=== PATIENT | female | born 1960 | race Caucasian/White ===

== ENCOUNTER 2019-02-23 21:54 | Emergency (ER) | payer BC ==
[2019-02-23 22:14] VITALS: BP 120/82; PULSE 76; TEMP 98.4; BMI 20.2
[2019-02-23] MEDS ORDERED: DIPHTH,PERTUSS(ACELL),TET 0.5 ML DISP.SYRIN IM ONE ×2 (23:08→23:15)
--- NOTE | 2019-02-23 23:14 | PDOC ---
History of Present Illness - General Chief Complaint: Injury Stated Complaint: FINGER INJURY Time Seen by Provider: 02/23/19 22:44 History Source: Patient Exam Limitations: No Limitations - History of Present Illness Initial Comments: 02/23/19 23:11 HISTORY OF PRESENT ILLNESS: 59-year-old woman presents emergency department for evaluation of laceration to left index finger while cleaning a immersion hub lead. Patient reports the blade was spinning when she reached in to clean it striking the tip of her index finger as it was stopping. Patient evidently applied pressure dressing to her finger presented to the emergency department for evaluation. Patient is unsure of her last tetanus shot. Patient is right- hand dominant and works as a copying machine mechanic. No recent travel or sick contacts. PAST MEDICAL HISTORY: Depression, HLD SURGICAL HISTORY: Denies ALLERGIES: No known drug allergies REVIEW OF SYSTEMS General/Constitutional: Denies fever or chills. Denies weakness, weight change. HEENT: Denies change in vision. Denies ear pain or discharge. Denies sore throat. Cardiovascular: Denies chest pain or shortness of breath. Respiratory: Denies cough, wheezing, or hemoptysis. Gastrointestinal: Denies nausea, vomiting, diarrhea or constipation. Denies rectal bleeding. Genitourinary: Denies dysuria, frequency, or change in urination. Musculoskeletal: Denies joint or muscle swelling or pain. Denies neck or back pain. Skin and breasts: see HPI Neurologic: Denies headache, vertigo, loss of consciousness, or loss of sensation. Psychiatric: Denies depression or anxiety. Endocrine: Denies increased thirst. Denies abnormal weight change. Hematologic/Lymphatic: Denies anemia, easy bleeding, or history of blood clots. Allergic/Immunologic: Denies hives or skin allergy. Denies latex allergy. PHYSICAL EXAM General Appearance: Well-appearing, appropriately dressed. No apparent distress , no intoxication. Respiratory/Chest: Lungs CTAB. No shortness of breath, chest tenderness, respiratory distress, accessory muscle use. No crackles, rales, rhonchi, stridor , wheezing, dullness Cardiovascular: RRR. S1, S2. No JVD, murmur, bradycardia, tachycardia. Musculoskeletal/Extremities: Laceration to the left index finger over the volar aspect of the distal phalanx. Full sensation present. Capillary refill is less than 2 seconds. Integumentary: Approximate 2 cm linear superficial laceration present to the volar aspect over the distal phalanx of the left index finger. Bleeding is well controlled. Neurologic: window cleaner II-XII intact. Fully oriented, alert. Appropriate mood/affect. Motor strength 5/5. No appreciable EOM palsy, facial droop or sensory deficit. Past History - Past Medical History Allergies/Adverse Reactions: Allergies Allergy/AdvReac Type Severity Reaction Status Date / Time No Known Allergies Allergy Verified 02/23/19 22:06 COPD: No - Immunization History Immunization Up to Date: No - Suicide/Smoking/Psychosocial Hx Smoking History: Never smoked *Physical Exam - Vital Signs Last Vital Signs Temp Pulse Resp BP Pulse Ox 98.4 F 76 18 120/82 99 02/23/19 21:58 02/23/19 21:58 02/23/19 21:58 02/23/19 21:58 02/23/19 21:58 Procedures - Consent Consent obtained: Verbal, From Patient - Laceration/Wound Repair Left Volar Finger 2nd digit Wound Length: to 2.5 cm Wound Explored: clean Wound's Depth, Shape: superficial, linear Irrigated w/ Saline: Yes Betadine Prep: No Wound Debrided: minimal Wound Repaired With: Dermabond Layer Closure: No Sterile Dressing Applied: No Splint Applied: No Sling Applied: No Progress: 02/23/19 23:10 pt tolerated well Medical Decision Making - Medical Decision Making 02/23/19 23:09 A/P: 59-year-old woman with laceration to the left index finger 2 cm superficial linear laceration present to the volar aspect over the DIP of the left index finger Bleeding is well-controlled Dermabond repair-see procedure note for details Restricts Discharge home *DC/Admit/Observation/Transfer Diagnosis at time of Disposition: Laceration - Discharge Dispostion Disposition: HOME Condition at time of disposition: Stable Decision to Admit order: No - Referrals Referrals: Joseph Boles [Primary Care Provider] - - Patient Instructions Printed Discharge Instructions: DI for Laceration Repair With Dermabond Additional Instructions: Rest, no strenuous activity or exercise until glue is dissolved or lifted Wash from the neck down only and avoid hot steamy environment until Dermabond is gone No bathing or swimming until Dermabond is dissolved Avoid peeling away as wound will open Dermabond should be resolved within 3-7 days May use Tylenol or Motrin for pain relief Followup with your doctor as needed Return to emergency department for worsening swelling, pain, redness or signs of cellulitis If the wound reopens, may not be re-closed as will be a dirty wound and will need to heal by secondary intention - Post Discharge Activity
== END 2019-02-23 23:23 | disposition home or self-care (01) ==
LOC: JERFT 21:54
PROC: 3E0234Z Introduction of Serum, Toxoid and Vaccine into Muscle, Percutaneous Approach (ICD-10-PCS; principal; 2019-02-23)
PROC: 0HQGXZZ Repair Left Hand Skin, External Approach (ICD-10-PCS; 2019-02-23)
DX: S61.211A Laceration without foreign body of left index finger without damage to nail, initial encounter (principal); W29.0XXA Contact with powered kitchen appliance, initial encounter; Y93.G1 Activity, food preparation and clean up; Y92.030 Kitchen in apartment as the place of occurrence of the external cause; Y99.8 Other external cause status
CPT/HCPCS: 90715; 99282-25